=== PATIENT | female | born 1990 | race Caucasian/White ===

== ENCOUNTER 2022-05-15 17:05 | Outpatient (REF) | payer BC, SELFPAY ==
[2022-05-17 14:56] LABS: H Pylori Breath Test Negative (Negative)
== END 2022-05-15 17:06 | disposition home or self-care (01) ==
LOC: HO.LNP 17:05
PROVIDERS: Visit Provider Physician Assistant Surgical
DX: E66.01 Morbid (severe) obesity due to excess calories (principal)
CPT/HCPCS: 83013

== ENCOUNTER → 2022-06-08 13:00 | Outpatient (BNVA) | payer BC, SELFPAY | PROVIDERS: PCP Physician Assistant; Referring Provider Physician Assistant Surgical; Visit Provider Counselor Mental Health | DX: F43.20 Adjustment disorder, unspecified (principal); E66.01 Morbid (severe) obesity due to excess calories | CPT/HCPCS: 90791 ==

== ENCOUNTER → 2022-06-12 10:16 | Outpatient (BNVA) | payer BC, SELFPAY | PROVIDERS: PCP Physician Assistant; Referring Provider Physician Assistant Surgical; Visit Provider Dietitian, Registered | DX: E66.01 Morbid (severe) obesity due to excess calories (principal) | CPT/HCPCS: 97802 ==

== ENCOUNTER 2022-07-01 09:47 | Outpatient (REF) | payer BC, SELFPAY ==
--- NOTE | ~2022-07-01 | FL_ITS ---
EXAMINATION: XR FLUOROSCOPY UPPER GI WITH AIR CLINICAL INFORMATION: Morbid obesity due to excess calories COMPARISON: None TECHNIQUE: After effervescent granules, multiple fluoroscopic spot images were obtained as the patient swallowed thick and thin barium in upright and prone positions. FINDINGS: The patient initiated swallowing normally. The cervical esophagus is normal. There is slightly ineffective primary peristalsis in prone position but no tertiary contractions are seen. No fixed esophageal mucosal abnormality to suggest stricture or mass. No hiatal hernia. No reflux observed spontaneously or elicited with Valsalva maneuver. Normal appearance of the gastric mucosa. The gastric antrum, duodenal bulb, and sweep are normal. Normal gastric emptying. Normal distensibility of the distal stomach and duodenum. FLUOROSCOPY TIME: 3.7 minutes DOSE AREA PRODUCT: 62.566 Gy-cm2 (cole-centimeter squared) FL/FL upper GI w air IMPRESSION: There is slightly ineffective primary peristalsis in the prone position but no tertiary contractions are seen. No hiatal hernia or reflux elicited. Stomach and duodenum are normal in appearance.
--- NOTE | 2022-07-01 10:55 | ECG_ITS ---
Test Reason : Morbid Obesity Blood Pressure : / mmHG Vent. Rate : 068 BPM Atrial Rate : 068 BPM P-R Int : 196 ms QRS Dur : 114 ms QT Int : 442 ms P-R-T Axes : 035 056 053 degrees QTc Int : 469 ms Normal sinus rhythm RSR' or QR pattern in V1 suggests right ventricular conduction delay Low voltage QRS Intra-ventricular conduction delay Abnormal ECG No previous ECGs available Referred By: Juan David Barahona Electronically Signed By:KASEY SUERO MD
== END 2022-07-01 09:48 | disposition home or self-care (01) ==
LOC: HO.XRAY 09:47
PROVIDERS: Visit Provider Physician Assistant Surgical
DX: E66.01 Morbid (severe) obesity due to excess calories (principal)
CPT/HCPCS: 74246; 93005

== ENCOUNTER 2022-07-31 09:23 | Outpatient (REF) | payer BC, SELFPAY ==
--- NOTE | ~2022-07-31 | US_ITS ---
EXAMINATION: US COMPLETE ABDOMEN WITH LIVER ELASTOGRAPHY CLINICAL INFORMATION: Morbid obesity COMPARISON: None. TECHNIQUE: Real-time imaging of the abdominal viscera. Noninvasive ultrasound liver fibrosis assessment is performed using [employer] ElastPQ point quantification shear wave elastography (2D-SWE) with a C5-2 MHz transducer. Multiple elastography samples are obtained. FINDINGS: PANCREAS: Normal. The visualized pancreatic head and body are normal in appearance. The remainder of the pancreas is obscured from visualization by the overlying bowel gas. ABDOMINAL AORTA: The proximal, middle, and distal aortic segments are normal in caliber. INFERIOR VENA CAVA: Visualized portions are normal. LIVER: Liver is enlarged with increased echogenicity. No focal lesion or intrahepatic biliary duct dilatation. The right lobe measures 18.4 cm in length. The left lobe measures 11.9 cm in length. Portal flow is hepatopedal. Shear wave liver elastography median stiffness is 1.55 m/s (reference: normal median stiffness is 1.3 m/s or less). IQR/median stiffness to assess sampling precision is 0.19 (reference: good quality data set is IQR/median stiffness of 0.15 or less). GALLBLADDER: The gallbladder is physiologically distended without evidence of stones, sludge, polyps, wall thickening or pericholecystic fluid. COMMON BILE DUCT: Normal in caliber measuring 0.2 cm in diameter. RIGHT KIDNEY: . No hydronephrosis. No renal calculi or focal parenchymal lesions. The kidney measures 12.6 cm in maximum dimension. LEFT KIDNEY: No hydronephrosis. No renal calculi or focal parenchymal lesions. The kidney measures 15.1 cm in maximum dimension. SPLEEN: Enlarged measuring 12.8 cm in maximum dimension. FREE FLUID: None. US/US abdomen comp w elastography IMPRESSION: 1. Enlarged fatty liver. 2. Liver elastography: Although measurements appear to rule out compensated advanced chronic liver disease, there is statistical variability of the sampling which decreases accuracy. REFERENCE: Society of [employer]iologists in Ultrasound Liver Stiffness Thresholds (2020): LIVER STIFFNESS THRESHOLDS: *Liver Stiffness equal or less than 1.3 m/s: High probability of being normal. *Liver Stiffness less than 1.7 m/s: In the absence of other known clinical signs, rules out compensated advanced chronic liver disease. *Liver Stiffness 1.7-2.1 m/s: Suggestive of compensated advanced chronic liver disease but need further test for confirmation. *Liver Stiffness over 2.1 m/s: Rules in compensated advanced chronic liver disease. *Liver Stiffness over 2.4 m/s: Suggestive of clinically significant portal hypertension. QUALITY OF DATA SET: *IQR/Median value equal or less than 0.15 implies a quality data set. *IQR/Median value over 0.15 implies a poor quality data set. SIGNIFICANT CHANGE FROM PRIOR EXAM: Significant change if liver stiffness measurement is 10% or greater from prior exam. OTHER CONSIDERATIONS: The stage of liver fibrosis may be overestimated in the setting of acute hepatitis, liver inflammation, elevated liver function tests, hepatic vascular congestion, obstructive cholestasis, non-fasting state, and infiltrative diseases such as amyloidosis and lymphoma. In some patients with NAFLD, the liver stiffness thresholds for compensated advanced chronic liver disease may be lower. In causes other than viral hepatitis and NAFLD, liver stiffness thresholds are not well established.
== END 2022-07-31 09:24 | disposition home or self-care (01) ==
LOC: HO.US 09:23
PROVIDERS: Visit Provider Physician Assistant Surgical
DX: E66.01 Morbid (severe) obesity due to excess calories (principal)
CPT/HCPCS: 76705; 76981